=== PATIENT | female | born 1995 | race Caucasian/White ===

== ENCOUNTER 2023-01-07 10:47 | Emergency (ER) | payer BC, SELFPAY ==
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
[2023-01-07 10:57] VITALS: BP 126/85; PULSE 88; RESP 20; TEMP 36.4; BMI 18.8
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
--- NOTE | 2023-01-07 11:27 | PC.NURSE ---
Patient refusing IV at this time, this nurse explained why an IV would be needed. Patient states that at this time she would not want the IV and wants to wait until after CT. Patient placed on clinical research monitor at this time.
--- NOTE | 2023-01-07 11:30 | PC.NURSE ---
Patient getting CT and Xray at this time.
[2023-01-07 12:00] VITALS: BP 113/77; PULSE 79; RESP 14; O2SAT 100
--- NOTE | 2023-01-07 12:00 | PC.NURSE ---
Patient back from radiology and medicated for pain. Patient continues to be calm and cooperative, SO at bedside.
[2023-01-07] MEDS: Acetaminophen 325 MG TABLET 650 MG PO (12:01)
[2023-01-07] MEDS: Bacitracin Oint 0.9 GM PACKET 1 APPL TOPICAL (14:57)
[2023-01-07 14:58] VITALS: BP 112/74; PULSE 96; RESP 16; O2SAT 99
== END 2023-01-07 15:00 | disposition home or self-care (01) ==
PROVIDERS: Emergency Provider Emergency Medicine
DX: S09.90XA Unspecified injury of head, initial encounter (principal); S40.212A Abrasion of left shoulder, initial encounter; S50.311A Abrasion of right elbow, initial encounter; S70.211A Abrasion, right hip, initial encounter; S80.811A Abrasion, right lower leg, initial encounter; V18.0XXA Pedal cycle driver injured in noncollision transport accident in nontraffic accident, initial encounter; Y93.55 Activity, bike riding; Y92.414 Local residential or business street as the place of occurrence of the external cause; Y99.9 Unspecified external cause status
CPT/HCPCS: 70450; 72125; 73000; 73080; 73502; 73590; 99284